=== PATIENT | female | born 2000 | race Caucasian/White ===

== ENCOUNTER 2024-03-01 09:12 | Outpatient (CLI) | payer BC, SELFPAY | END 2024-03-01 09:13 | disposition home or self-care (01) | PROVIDERS: PCP Physician Assistant Medical; Visit Provider Physician Assistant Medical | DX: Z00.00 Encounter for general adult medical examination without abnormal findings (principal); L70.9 Acne, unspecified; Z13.6 Encounter for screening for cardiovascular disorders; Z11.3 Encounter for screening for infections with a predominantly sexual mode of transmission; Z13.29 Encounter for screening for other suspected endocrine disorder | CPT/HCPCS: 80053; 80061; 84443; 87491; 87591 ==

== ENCOUNTER 2024-12-07 10:41 | Outpatient (CLI) | payer BC, SELFPAY ==
[2024-12-19 14:45] LABS: Pap Test Reviewed by Path Done
[2024-12-19 15:27] LABS: HPV High Risk Not Detected
== END 2024-12-07 10:42 | disposition home or self-care (01) ==
LOC: FRMREF 10:42
PROVIDERS: PCP Physician Assistant Medical; Visit Provider Physician Assistant Medical
DX: E66.09 Other obesity due to excess calories (principal); Z11.3 Encounter for screening for infections with a predominantly sexual mode of transmission; Z11.59 Encounter for screening for other viral diseases
CPT/HCPCS: 86592; 86703; 86706; 86803; 87340; 87491; 87591; 87624; 87625; 88141; 88142

== ENCOUNTER 2025-07-18 08:15 | Outpatient (CLI) | payer BC, SELFPAY ==
[2025-07-18 14:45] LABS: Chlamydia DNA Amplified* NOT DETECTED (No Detected); GC DNA Amplified* NOT DETECTED (No Detected)
== END 2025-07-18 08:16 | disposition home or self-care (01) ==
LOC: FRMREF 08:15
PROVIDERS: PCP Physician Assistant Medical; Visit Provider Registered Nurse
DX: N89.8 Other specified noninflammatory disorders of vagina (principal)
CPT/HCPCS: 87491; 87591